=== PATIENT | male | born 1970 | race Caucasian/White ===

== ENCOUNTER 2022-10-20 20:53 | Inpatient (IN) | payer BC ==
[2022-10-20] MEDS ORDERED: Ondansetron PF 4 MG/2 ML Vial IVP PRN (21:36)
[2022-10-20] MEDS ORDERED: Acetaminophen 325 MG TAB PO PRN (21:36)
[2022-10-20] MEDS ORDERED: Guaifenesin DM 100-10/5 ML UDCUP PO PRN (21:36)
[2022-10-20] MEDS ORDERED: Calcium Carbonate 500 MG ChewTAB PO PRN (21:36)
[2022-10-20] MEDS ORDERED: Dextrose 5% in Water 1,000 ML IV PRN (21:36)
[2022-10-20] MEDS ORDERED: Dextrose 50% Abboject 50 ML SYRINGE SLOW IVP PRN (21:36)
[2022-10-20] MEDS ORDERED: Senokot S 8.6-50 MG TAB PO PRN (21:36)
[2022-10-20] MEDS ORDERED: Benzonatate 100 MG CAP PO PRN (21:42)
[2022-10-20] MEDS ORDERED: Oxymetazoline HCl 0.05% ( 15 ML ) NASAL PRN (21:42)
[2022-10-20 22:32] VITALS: BMI 26.2
[2022-10-20] MEDS ORDERED: Piperacillin/Tazobactam 3.375 GM in Sodium Chloride 0.9% 100 ML IVPB SCH ×2 (23:00→23:59)
[2022-10-20] MEDS: traMADol HCl 50 MG TAB PO PRN (23:23)
[2022-10-20] MEDS: HumaLOG 300 UNITS/3 ML VIAL SC PRN (23:24)
[2022-10-20] MEDS ORDERED: Vancomycin 1.5 GRAM/300 ML BAG 1.5 GM in Premix Bag 1 BAG IVPB SCH (23:59)
[2022-10-21 01:47] LABS: Legionella Urinary Ag Negative (Negative); Strep pneumo Urine Ag NEGATIVE (NEGATIVE)
[2022-10-21 02:25] LABS: SARS-CoV-2 NAA Rapid Test Not Detected (NotDetected)
[2022-10-21] MEDS ORDERED: Zolpidem Tartrate 5 MG TAB PO SCH (03:15)
[2022-10-21] MEDS: Piperacillin/Tazobactam 3.375 GM in Sodium Chloride 0.9% 100 ML IVPB SCH ×3 (03:19→22:21)
[2022-10-21] MEDS ORDERED: FLU VACC QS2022-23(6MOS UP)/PF 60 MCG/0.5 ML SYRINGE IM ONE (04:15)
[2022-10-21 06:33] LABS: #Basophils 0.1 10x3/uL (0.0-0.2); #Eosinphils 0.1 10x3/uL (0.0-0.5); #Neutrophils 6.2 10x3/uL (1.5-8.4); %Basophils 0.5 % (0.0-2.0); %Eosinophils 1.1 % (0.0-6.0); %Lymphocytes 32.6 % (18.0-47.0); %Monocytes 8.8 % (0.0-10.0); %Neutrophils 56.6 % (40.0-75.0); Hemoglobin 13.9 g/dL (13.5-17.5); Mean Corpuscular HGB CONC 33.3 g/dL (32.0-36.0); Mean Corpuscular Hemoglobin 28.7 pg (27.0-33.0); Mean Corpuscular Volume 86.4 fl (81.2-95.1); Mean Platelet Volume 10.6 fl (7.4-10.4); Platelet Count 388 10x3/uL (150-450); RBC Distribution Width 12.7 % (11.5-14.5); Red Blood Cell (RBC) Count 4.84 10x6/uL (4.32-5.72); White Blood Cell (WBC) Count 10.9 10x3/uL (3.5-10.5)
[2022-10-21 06:48] LABS: Anion Gap 16 mmol/L (10-20); BUN (Urea Nitrogen) 28 mg/dL (8.4-25.7); Calc. Creatinine Clearance 67 mL/min (70-130); Calcium 8.6 mg/dL (7.8-10.44); Carbon Dioxide 21 mmol/L (22-29); Chloride 102 mmol/L (98-107); Estimated GFR 62; Glucose 158 mg/dL (70-105); Potassium 4.9 mmol/L (3.5-5.1); Sodium 134 mmol/L (136-145)
[2022-10-21] MEDS: traMADol HCl 50 MG TAB PO PRN (07:06)
[2022-10-21] MEDS ORDERED: Docusate 100 MG CAP PO SCH (09:00)
[2022-10-21] MEDS: Multivitamin W/ Minerals 1 TAB PO SCH (09:54)
[2022-10-21] MEDS: Carvedilol 3.125 MG TAB PO SCH ×2 (09:54→16:34)
[2022-10-21] MEDS: Lisinopril 5 MG TAB PO SCH (09:54)
[2022-10-21] MEDS: Aspirin 81 mg Enteric Coated Tablet PO SCH (09:54)
[2022-10-21] MEDS: Lantus 1000 UNITS/10 ML VIAL SC SCH (09:55)
[2022-10-21] MEDS ORDERED: Bisacodyl 10 MG SUPP PR PRN (10:45)
[2022-10-21] MEDS: VANCOMYCIN 1.25 GM/250 ML BAG 1.25 GM in Premix Bag 1 BAG IVPB SCH (13:19)
[2022-10-21] MEDS: HumaLOG 300 UNITS/3 ML VIAL SC PRN ×2 (13:45→22:20)
[2022-10-21] MEDS ORDERED: Furosemide 40 MG/4 ML VIAL SLOW IVP SCH (18:45)
[2022-10-21] MEDS: Ipratropium/Albuterol 3 ML NEB NEB SCH (19:20)
[2022-10-21] MEDS: Senokot S 8.6-50 MG TAB PO SCH (22:22)
[2022-10-22] MEDS: VANCOMYCIN 1.25 GM/250 ML BAG 1.25 GM in Premix Bag 1 BAG IVPB SCH (02:48)
[2022-10-22 04:41] LABS: #Monocytes 0.7 10x3/uL (0.0-1.1); #Neutrophils 6.2 10x3/uL (1.5-8.4); %Basophils 0.4 % (0.0-2.0); %Eosinophils 0.5 % (0.0-6.0); %Lymphocytes 17.1 % (18.0-47.0); %Monocytes 8.6 % (0.0-10.0); %Neutrophils 72.9 % (40.0-75.0); Hemoglobin 12.7 g/dL (13.5-17.5); Mean Corpuscular HGB CONC 34.5 g/dL (32.0-36.0); Mean Corpuscular Hemoglobin 29.4 pg (27.0-33.0); Mean Corpuscular Volume 85.2 fl (81.2-95.1); Mean Platelet Volume 10.5 fl (7.4-10.4); Platelet Count 324 10x3/uL (150-450); RBC Distribution Width 12.6 % (11.5-14.5); Red Blood Cell (RBC) Count 4.32 10x6/uL (4.32-5.72); White Blood Cell (WBC) Count 8.5 10x3/uL (3.5-10.5)
[2022-10-22 04:50] LABS: Anion Gap 11 mmol/L (10-20); BUN (Urea Nitrogen) 26 mg/dL (8.4-25.7); Calc. Creatinine Clearance 65 mL/min (70-130); Calcium 8.3 mg/dL (7.8-10.44); Carbon Dioxide 23 mmol/L (22-29); Chloride 103 mmol/L (98-107); Estimated GFR 60; Glucose 250 mg/dL (70-105); Potassium 3.9 mmol/L (3.5-5.1); Sodium 133 mmol/L (136-145)
[2022-10-22] MEDS: Piperacillin/Tazobactam 3.375 GM in Sodium Chloride 0.9% 100 ML IVPB SCH ×3 (05:04→21:29)
[2022-10-22] MEDS: Furosemide 40 MG/4 ML VIAL SLOW IVP SCH ×2 (05:06→12:10)
[2022-10-22] MEDS: HumaLOG 300 UNITS/3 ML VIAL SC PRN ×3 (06:31→17:45)
[2022-10-22] MEDS: Ipratropium/Albuterol 3 ML NEB NEB SCH ×4 (07:10→20:00)
[2022-10-22 08:50] LABS: HBSAg Index 0.28 S/CO (0-0.99); Hep B Surf Ag Non-Reactive S/CO (NonReactive)
[2022-10-22] MEDS: Aspirin 81 mg Enteric Coated Tablet PO SCH (12:08)
[2022-10-22] MEDS: Multivitamin W/ Minerals 1 TAB PO SCH (12:08)
[2022-10-22] MEDS: Lisinopril 5 MG TAB PO SCH (12:09)
[2022-10-22] MEDS: Carvedilol 12.5 MG TAB PO SCH ×2 (12:09→17:45)
[2022-10-22] MEDS: Polyethylene Glycol 3350 17 GM Packet PO SCH (12:10)
[2022-10-22] MEDS: Senokot S 8.6-50 MG TAB PO SCH ×2 (12:10→21:30)
[2022-10-22] MEDS: Lantus 1000 UNITS/10 ML VIAL SC SCH (12:34)
[2022-10-22 14:25] LABS: HBCM Index 0.07 S/CO (0-0.79); Hep A IgM AB Non-Reactive (NonReactive); Hepatitis B Core IgM Abs Non-Reactive (NonReactive)
[2022-10-22 14:58] LABS: Hep C IgG Ab Reflex HepC Qnt (NonReactive); Hep C Index 12.87 S/CO (0-0.79)
[2022-10-22] MEDS ORDERED: Lantus 1000 UNITS/10 ML VIAL SC SCH (21:00)
[2022-10-23 00:03] LABS: Creatinine, Urine 74.44 mg/dL (63-166)
[2022-10-23 00:14] LABS: Microalbumin/Creat Ratio 1974.7 mg/g (Less than 30)
[2022-10-23] MEDS: Piperacillin/Tazobactam 3.375 GM in Sodium Chloride 0.9% 100 ML IVPB SCH (04:12)
[2022-10-23] MEDS: traMADol HCl 50 MG TAB PO PRN (04:24)
[2022-10-23 05:58] LABS: Albumin 2.9 g/dL (3.5-5.0); Anion Gap 13 mmol/L (10-20); BUN (Urea Nitrogen) 28 mg/dL (8.4-25.7); BUN/Creatinine Ratio 22.95; Calc. Creatinine Clearance 75 mL/min (70-130); Calcium 8.6 mg/dL (7.8-10.44); Carbon Dioxide 21 mmol/L (22-29); Chloride 103 mmol/L (98-107); Estimated GFR 72; Glucose 300 mg/dL (70-105); Phosphorus 3.7 mg/dL (2.3-4.7); Potassium 4.3 mmol/L (3.5-5.1); Sodium 133 mmol/L (136-145)
[2022-10-23] MEDS: Furosemide 40 MG/4 ML VIAL SLOW IVP SCH ×2 (06:17→09:18)
[2022-10-23 06:18] LABS: HIV (1/2) Antibody/Antigen Non-Reactive (NonReactive)
[2022-10-23] MEDS: HumaLOG 300 UNITS/3 ML VIAL SC PRN (06:21)
[2022-10-23] MEDS: Ipratropium/Albuterol 3 ML NEB NEB SCH ×4 (07:10→20:02)
[2022-10-23 07:47] LABS: HIV 1/2 INDEX 0.18 S/CO (<1.00)
[2022-10-23] MEDS: Lantus 1000 UNITS/10 ML VIAL SC SCH ×2 (09:18→22:00)
[2022-10-23] MEDS: Multivitamin W/ Minerals 1 TAB PO SCH (09:19)
[2022-10-23] MEDS: Glimepiride 4 MG TAB PO SCH (09:19)
[2022-10-23] MEDS: Lisinopril 5 MG TAB PO SCH (09:19)
[2022-10-23] MEDS: Cefdinir 300 MG CAP PO SCH ×2 (09:19→22:00)
[2022-10-23] MEDS: Carvedilol 12.5 MG TAB PO SCH (09:19)
[2022-10-23] MEDS: Aspirin 81 mg Enteric Coated Tablet PO SCH (09:19)
[2022-10-23] MEDS ORDERED: Carvedilol 12.5 MG TAB PO SCH (09:45)
[2022-10-23] MEDS: Polyethylene Glycol 3350 17 GM Packet PO SCH (10:09)
[2022-10-23] MEDS: Senokot S 8.6-50 MG TAB PO SCH ×2 (10:10→22:00)
[2022-10-23] MEDS ORDERED: hydrALAZINE 20 MG/ML VIAL SLOW IVP PRN (10:18)
[2022-10-23] MEDS ORDERED: Lisinopril 5 MG TAB PO SCH (11:15)
[2022-10-23] MEDS: Carvedilol 25 MG TAB PO SCH (15:29)
[2022-10-24] MEDS: HumaLOG 300 UNITS/3 ML VIAL SC PRN ×2 (01:30→07:08)
[2022-10-24] MEDS ORDERED: Furosemide 40 MG TAB PO SCH (07:30)
[2022-10-24] MEDS: Ipratropium/Albuterol 3 ML NEB NEB SCH (07:30)
[2022-10-24 07:41] VITALS: BP 142/91; TEMP 98.1
[2022-10-24 08:16] LABS: Anion Gap 13 mmol/L (10-20); BUN (Urea Nitrogen) 29 mg/dL (8.4-25.7); Calc. Creatinine Clearance 77 mL/min (70-130); Calcium 8.8 mg/dL (7.8-10.44); Carbon Dioxide 21 mmol/L (22-29); Chloride 104 mmol/L (98-107); Estimated GFR 75; Glucose 277 mg/dL (70-105); Potassium 4.2 mmol/L (3.5-5.1); Sodium 134 mmol/L (136-145)
[2022-10-24] MEDS ORDERED: Lisinopril 10 MG TAB PO SCH (09:00)
[2022-10-24] MEDS: traMADol HCl 50 MG TAB PO PRN (09:01)
[2022-10-24] MEDS: Aspirin 81 mg Enteric Coated Tablet PO SCH (09:01)
[2022-10-24] MEDS: Lantus 1000 UNITS/10 ML VIAL SC SCH (09:01)
[2022-10-24] MEDS: Cefdinir 300 MG CAP PO SCH (09:02)
[2022-10-24] MEDS: Carvedilol 25 MG TAB PO SCH (09:02)
[2022-10-24] MEDS: Senokot S 8.6-50 MG TAB PO SCH (09:02)
[2022-10-24] MEDS: Polyethylene Glycol 3350 17 GM Packet PO SCH (09:02)
[2022-10-24] MEDS: Multivitamin W/ Minerals 1 TAB PO SCH (09:02)
[2022-10-24] MEDS: Glimepiride 4 MG TAB PO SCH (09:02)
[2022-10-26 12:39] LABS: HCV RNA, log10 6.433 (.); Hep C PCR-Quant 2710000 IU/mL (.)
== END 2022-10-24 14:19 | disposition home or self-care (01) | DRG 291 ==
LOC: CSHTELE 20:53
PROVIDERS: ADMIT Student in an Organized Health Care Education/Training Program; ATTEND Internal Medicine
DX: I11.0 Hypertensive heart disease with heart failure (principal); I50.21 Acute systolic (congestive) heart failure; N17.9 Acute kidney failure, unspecified; E87.1 Hypo-osmolality and hyponatremia; I42.0 Dilated cardiomyopathy; F17.210 Nicotine dependence, cigarettes, uncomplicated; Z20.822 Contact with and (suspected) exposure to COVID-19; E11.65 Type 2 diabetes mellitus with hyperglycemia; F15.10 Other stimulant abuse, uncomplicated; K59.00 Constipation, unspecified
CPT/HCPCS: 36415; 36416; 76770; 80048; 80069; 80074; 82043; 82570; 84145; 84156; 85025; 87040; 87070; 87205; 87389; 87449; 87522; 87899; 93005; 93010; 93306; 94640; 94760; 94799; J1650; J1815; J1940; J2543; J3370; J3490; J7620